=== PATIENT | female | born 1990 | race African-American/Black ===

== ENCOUNTER 2021-07-21 15:32 | Emergency (ER) | payer MEDICAID, SELFPAY ==
[2021-07-21 17:51] LABS: #Monocytes 0.4 10x3/uL (0.0-1.1); #Neutrophils 3.6 10x3/uL (1.5-8.4); %Basophils 0.4 % (0.0-2.0); %Lymphocytes 25.8 % (18.0-47.0); %Monocytes 7.8 % (0.0-10.0); %Neutrophils 65.6 % (40.0-75.0); Mean Corpuscular HGB CONC 33.2 g/dL (32.0-36.0); Mean Corpuscular Hemoglobin 31.2 pg (27.0-33.0); Mean Corpuscular Volume 93.8 fl (81.6-98.3); Mean Platelet Volume 9.6 fl (7.4-10.4); Platelet Count 341 10x3/uL (150-450); RBC Distribution Width 13.8 % (11.5-14.5); Red Blood Cell (RBC) Count 4.17 10x6/uL (3.90-5.03); White Blood Cell (WBC) Count 5.5 10x3/uL (3.5-10.5)
[2021-07-21 17:59] LABS: BHCG - Serum POSITIVE (NEGATIVE); Pregs Control Background? CLEAR/WHITE (CLR/WHITE); Pregs Control Bar Appear? YES (CONTROL BAR)
[2021-07-21 18:07] LABS: ALT (SGPT) 40 U/L (8-55); AST (SGOT) 18 U/L (5-34); Albumin 4.1 g/dL (3.5-5.0); Alkaline Phosphatase 60 U/L (40-110); Anion Gap 13 mmol/L (10-20); BUN (Urea Nitrogen) 5 mg/dL (7.0-18.7); Bilirubin, Total 0.3 mg/dL (0.2-1.2); Calc. Creatinine Clearance 0 mL/min (70-130); Calcium 9.3 mg/dL (7.8-10.44); Carbon Dioxide 22 mmol/L (22-29); Chloride 104 mmol/L (98-107); Globulin 3.6 g/dL (2.4-3.5); Glucose 83 mg/dL (70-105); Potassium 3.8 mmol/L (3.5-5.1); Protein, Total 7.7 g/dL (6.0-8.3); Sodium 135 mmol/L (136-145)
[2021-07-21] MEDS ORDERED: Misoprostol 200 MCG TAB ONE (19:21)
[2021-07-21] MEDS ORDERED: Ketorolac Tromethamine 30 MG/ML VIAL ONE (19:22)
== END 2021-07-21 19:57 | disposition home or self-care (01) ==
LOC: CSHERS 15:32
DX: O36.4XX0 Maternal care for intrauterine death, not applicable or unspecified (principal); O16.1 Unspecified maternal hypertension, first trimester; O99.281 Endocrine, nutritional and metabolic diseases complicating pregnancy, first trimester; E16.2 Hypoglycemia, unspecified; O99.331 Smoking (tobacco) complicating pregnancy, first trimester; F17.210 Nicotine dependence, cigarettes, uncomplicated; Z3A.10 10 weeks gestation of pregnancy
CPT/HCPCS: 80053; 84702; 84703; 85025; 86900; 86901; J1885

== ENCOUNTER 2021-12-18 16:03 | Day surgery (SDC) | payer MEDICAID, SELFPAY ==
[2021-12-18] MEDS ORDERED: Misoprostol 200 MCG TAB VAG PRN (16:17)
[2021-12-18] MEDS ORDERED: Lactated Ringer's 1,000 ML IV SCH (16:30)
[2021-12-18] MEDS ORDERED: Midazolam HCl 2 mg/2 ml Vial ONE ×2 (17:04→19:21)
[2021-12-18] MEDS ORDERED: PROPOFOL 20 ML ONE (17:04)
[2021-12-18] MEDS ORDERED: Ondansetron PF 4 MG/2 ML Vial ONE (17:05)
[2021-12-18] MEDS ORDERED: Lidocaine 2% PF 5 ML VIAL ONE (17:05)
[2021-12-18] MEDS ORDERED: Succinylcholine 200 MG/10 ml SYRINGE FS ONE (17:05)
[2021-12-18] MEDS ORDERED: Dexamethasone 20 MG/5 ML VIAL ONE (17:05)
[2021-12-18] MEDS ORDERED: Ketorolac Tromethamine 30 MG/ML VIAL ONE (17:05)
[2021-12-18] MEDS ORDERED: EPINEPHrine 1 MG/ML AMP ONE (17:23)
[2021-12-18] MEDS ORDERED: Bupivacaine PF 0.5% 30 ML VIAL ONE ×2 (17:24→17:25)
[2021-12-18] MEDS ORDERED: Methylergonovine 0.2 MG/ML VIAL ONE (17:26)
[2021-12-18] MEDS ORDERED: Methylergonovine 0.2 MG/ML VIAL IM SCH (17:30)
[2021-12-18] MEDS ORDERED: HYDROmorphone 0.5 MG/0.5 ML SYRINGE ONE (17:32)
[2021-12-18] MEDS ORDERED: CEFAZOLIN 1 GM VIAL ONE (17:51)
[2021-12-18] MEDS ORDERED: PHENYLEPHRINE-NS 100 MCG/ML 10 ML SYRINGE ONE (17:57)
[2021-12-18] MEDS ORDERED: ePHEDrine Sulfate 50 MG/10 ML VIAL ONE (18:12)
[2021-12-18] MEDS ORDERED: Silver Nitrate Application 1 EACH ONE (18:30)
[2021-12-18] MEDS ORDERED: Tranexamic Acid 1,000 MG/10 ML VIAL ONE (18:32)
[2021-12-18] MEDS ORDERED: Scopolamine 1.5 mg/72 hour Patch ONE (18:55)
[2021-12-18] MEDS ORDERED: Fentanyl 100 MCG/2 ML VIAL ONE ×2 (18:57→19:45)
[2021-12-18] MEDS ORDERED: Promethazine HCl 25 MG/ML VIAL ONE (18:58)
== END 2021-12-18 20:40 | disposition home or self-care (01) ==
LOC: CSHSDC/OP 16:03
PROVIDERS: ATTEND Obstetrics & Gynecology
PROC: 10D17ZZ Extraction of Products of Conception, Retained, Via Natural or Artificial Opening (ICD-10-PCS; principal; 2021-12-18)
DX: O03.4 Incomplete spontaneous abortion without complication (principal); K21.9 Gastro-esophageal reflux disease without esophagitis; G43.909 Migraine, unspecified, not intractable, without status migrainosus; Z88.5 Allergy status to narcotic agent; Z88.8 Allergy status to other drugs, medicaments and biological substances; Z20.822 Contact with and (suspected) exposure to COVID-19
CPT/HCPCS: 86850; 86900; 86901; 88305; 88325; J0171; J0690; J1100; J1170; J1885; J2001; J2210; J2250; J2405; J2550; J2704; J3010; J7120; S0020

== ENCOUNTER 2025-05-09 12:03 | Emergency (ER) | payer OTHER ==
[2025-05-09 12:41] LABS: #Basophils 0.03 10x3/uL (0.0-0.2); #Eosinophils 0.03 10x3/uL (0.0-0.5); #Monocytes 0.40 10x3/uL (0.0-1.1); #Neutrophils 2.08 10x3/uL (1.5-8.4); %Basophils 0.7 % (0.0-2.0); %Eosinophils 0.7 % (0.0-6.0); %Lymphocytes 40.1 % (18.0-47.0); %Monocytes 9.4 % (0.0-10.0); %Neutrophils 48.9 % (40.0-75.0); Hematocrit 35.5 % (34.9-44.5); Hemoglobin 11.7 g/dL (12.0-15.5); Mean Corpuscular Hemoglobin 31.8 pg (27.0-33.0); Mean Corpuscular Volume 96.5 fL (81.6-98.3); Platelet Count 276 10x3/uL (150-450); Red Blood Cell (RBC) Count 3.68 10x6/uL (3.90-5.03); White Blood Cell (WBC) Count 4.26 10x3/uL (3.5-10.5)
[2025-05-09 13:39] LABS: ALT (SGPT) 9 U/L (Less than 34); AST (SGOT) 17 U/L (11-34); Albumin 3.9 g/dL (3.1-4.5); Alkaline Phosphatase 51 U/L (40-110); Anion Gap 10 mmol/L (10-20); BUN (Urea Nitrogen) 11 mg/dL (7.0-18.7); Bilirubin, Total 0.3 mg/dL (0.3-1.2); Calc. Creatinine Clearance 0 mL/min (70-130); Calcium 8.7 mg/dL (7.8-10.44); Carbon Dioxide 24 mmol/L (22-29); Chloride 109 mmol/L (98-107); Globulin 3.2 g/dL (2.4-3.5); Glucose 89 mg/dL (70-105); Potassium 3.9 mmol/L (3.5-5.1); Sodium 139 mmol/L (136-145)
[2025-05-09] MEDS ORDERED: Acetaminophen 500 MG TAB ONE (14:04)
== END 2025-05-09 14:40 | disposition home or self-care (01) ==
LOC: CSHERS 12:03
DX: O02.1 Missed abortion (principal); F17.210 Nicotine dependence, cigarettes, uncomplicated
CPT/HCPCS: 36415; 76856; 80053; 84702; 85025